=== PATIENT | female | born 1970 | race Caucasian/White ===

== ENCOUNTER 2017-05-11 10:42 | Inpatient (IN) | payer MEDICAID ==
[~2017-05-11] VITALS: Ht 157.5 cm; Wt 96.4 kg
[~2017-05-11 10:42] MED LIST: AMLO10TA2 PO; ENAL-3 PO; FENO134C PO; GLIM2TAB33 PO; INSLANTI SC; NORG0.257 PO
[2017-05-11] MEDS ORDERED: ADENOSINE 6 MG/2 ML INJ IV ONE (10:57)
[2017-05-11] MEDS ORDERED: DILTIAZEM HCL 25 MG/5 ML VIAL IV ONE ×2 (10:58→11:15)
[2017-05-11 11:14] LABS: Basophils # (auto) 0.1 uL; Basophils % (auto) 1.2 % (0.0-2.0); Eosinophils # (auto) 0.1 uL; Eosinophils % (auto) 1.9 % (0.0-7.0); Hematocrit 46.6 % (36.0-46.0); Hemoglobin 15.3 g/dL (12.2-16.2); Lymphocytes # (auto) 2.3 uL; Lymphocytes % (auto) 39.4 % (10.0-50.0); Mean Corpuscular Hemoglobin 30.1 pg (28.0-32.0); Mean Corpuscular Hgb Conc. 32.8 g/dL (32.0-36.0); Mean Corpuscular Volume 91.7 fL (80.0-100.0); Monocytes # (auto) 0.3 uL; Monocytes % (auto) 4.4 % (0.0-12.0); Neutrophils # (auto) 3.1 uL; Neutrophils % (auto) 53.1 % (37.0-80.0); Nucleated Red Blood Cells % 1.5 %; Platelet Count (auto) 199 10^3/uL (140-450); Red Blood Cells 5.08 10^6/uL (4.0-5.20); Red Cell Distribution Width 13.4 % (11.8-14.3); White Blood Cell 5.8 10^3/uL (4.4-10.8)
[2017-05-11 11:31] LABS: Alanine Aminotransferase 84 U/L (13-56); Albumin 3.1 g/dL (3.4-5.0); Alkaline Phosphatase 151 U/L (45-117); Anion Gap 11 (5-15); Aspartate Aminotransferase 78 U/L (15-37); BUN/Creatinine Ratio 21.4; Bilirubin, Total 0.5 mg/dL (0.2-1.0); Blood Urea Nitrogen 21 mg/dL (7-18); Calcium 8.6 mg/dL (8.5-10.1); Carbon Dioxide 17 mmol/L (21-32); Chloride 107 mmol/L (98-107); GFR African American 78 mL/min; GFR Non-African American 65 mL/min; Glucose 312 mg/dL (74-106); Magnesium 1.7 mg/dL (1.6-2.6); Potassium 4.2 mmol/L (3.5-5.1); Sodium 135 mmol/L (136-145); Total Protein 7.7 g/dL (6.4-8.2)
[2017-05-11] MEDS ORDERED: SODIUM CHLORIDE 0.9% 1,000 ML IV ONE (13:30)
[2017-05-11] MEDS ORDERED: NITROGLYCERIN 0.4 MG SL TAB SL PRN (13:45)
[2017-05-11] MEDS ORDERED: PANTOPRAZOLE 40 MG TAB PO ONE (13:45)
[2017-05-11] MEDS ORDERED: ONDANSETRON HCL 4 MG/2 ML VIAL IV PRN (13:45)
[2017-05-11] MEDS ORDERED: DEXTROSE (50%) 50ML SYRG IV PRN (13:45)
[2017-05-11] MEDS ORDERED: METOPROLOL TARTRATE 25 MG TAB PO ONE (13:45)
[2017-05-11] MEDS ORDERED: MORPHINE SULFATE 4 MG/ML SYR/VIAL IV PRN (13:45)
[2017-05-11] MEDS ORDERED: ASPirin 81 mg TAB PO ONE (14:00)
[2017-05-11 17:00] VITALS: BP 167/94
[2017-05-11] MEDS: ACCU-CHEK COMFORT CURVE STRIP VI SCH ×2 (17:00→22:00)
[2017-05-11] MEDS: InsuLIN REG 1unit/0.01ml Soln (100units/ml) SC SCH ×2 (17:00→22:00)
[2017-05-11] MEDS ORDERED: VENL150C PO (17:26)
[2017-05-11] MEDS ORDERED: GLIM4TAB PO (17:26)
[2017-05-11] MEDS ORDERED: OMEP20TA PO (17:26)
[2017-05-11 20:05] VITALS: BP 147/83
[2017-05-11 22:00] VITALS: BP 147/83
[2017-05-11] MEDS: ATORVASTATIN 20 MG TAB PO SCH (22:44)
[2017-05-11] MEDS: METOPROLOL TARTRATE 25 MG TAB PO SCH (22:46)
[2017-05-11] MEDS: HYDROcodone-ACET 5/325MG TAB PO PRN (22:47)
[2017-05-11] MEDS: VENLAFAXINE HCL 37.5mg XR cap PO SCH (22:57)
[2017-05-12] VITALS (7 sets, daily range): BP systolic 128–144; BP diastolic 80–91
[2017-05-12] MEDS: ACCU-CHEK COMFORT CURVE STRIP VI SCH ×4 (07:00→22:00)
[2017-05-12] MEDS: InsuLIN REG 1unit/0.01ml Soln (100units/ml) SC SCH ×4 (07:00→20:58)
[2017-05-12] MEDS: METOPROLOL TARTRATE 25 MG TAB PO SCH ×2 (10:03→20:55)
[2017-05-12] MEDS: ASPirin 81 mg TAB PO SCH (10:04)
[2017-05-12] MEDS: VENLAFAXINE HCL 37.5mg XR cap PO SCH ×2 (10:04→20:54)
[2017-05-12] MEDS: PANTOPRAZOLE 40 MG TAB PO SCH (10:04)
[2017-05-12] MEDS: HYDROcodone-ACET 5/325MG TAB PO PRN ×3 (10:05→23:40)
[2017-05-12] MEDS: ATORVASTATIN 20 MG TAB PO SCH (20:55)
[2017-05-13 06:00] VITALS: BP 152/90
[2017-05-13] MEDS: ACCU-CHEK COMFORT CURVE STRIP VI SCH ×4 (06:38→21:48)
[2017-05-13] MEDS: InsuLIN REG 1unit/0.01ml Soln (100units/ml) SC SCH ×4 (06:40→21:48)
[2017-05-13 08:00] VITALS: BP 146/80
[2017-05-13] MEDS: METOPROLOL TARTRATE 25 MG TAB PO SCH (09:57)
[2017-05-13] MEDS: PANTOPRAZOLE 40 MG TAB PO SCH (09:58)
[2017-05-13] MEDS: ASPirin 81 mg TAB PO SCH (09:58)
[2017-05-13] MEDS: HYDROcodone-ACET 5/325MG TAB PO PRN ×4 (09:58→23:28)
[2017-05-13] MEDS: VENLAFAXINE HCL 37.5mg XR cap PO SCH ×2 (09:58→21:47)
[2017-05-13 12:40] VITALS: BP 141/81
[2017-05-13 16:35] VITALS: BP 145/88
[2017-05-13 21:26] LABS: Urine Bacteria FEW /hpf (None Seen); Urine Blood 2+ /uL (Negative); Urine Mucus FEW (None Seen); Urine Specific Gravity 1.021 (1.001-1.035); Urine WBC 1 /hpf (0 - 5)
[2017-05-13 21:30] VITALS: BP 151/87
[2017-05-13] MEDS: ATORVASTATIN 20 MG TAB PO SCH (21:47)
[2017-05-13 23:15] VITALS: BP 143/88
[2017-05-14 05:00] VITALS: BP 130/84
[2017-05-14] MEDS: InsuLIN REG 1unit/0.01ml Soln (100units/ml) SC SCH ×3 (06:51→17:00)
[2017-05-14] MEDS: ACCU-CHEK COMFORT CURVE STRIP VI SCH ×3 (06:51→19:31)
[2017-05-14] MEDS ORDERED: ADENOSINE 81 MG in GIVE UN-DILUTED 0 ML IV STA (08:22)
[2017-05-14 09:10] VITALS: BP 145/96
[2017-05-14 09:39] VITALS: BP 148/89
[2017-05-14] MEDS ORDERED: VALSARTAN 80 MG TAB PO SCH (10:00)
[2017-05-14] MEDS ORDERED: HCTZ 25 MG TAB PO SCH (10:00)
[2017-05-14] MEDS: ASPirin 81 mg TAB PO SCH (11:27)
[2017-05-14] MEDS: PANTOPRAZOLE 40 MG TAB PO SCH (11:27)
[2017-05-14] MEDS: VENLAFAXINE HCL 37.5mg XR cap PO SCH (11:28)
[2017-05-14 13:00] VITALS: BP 139/87
[2017-05-14 16:03] VITALS: BP 139/87
[2017-05-14 16:45] VITALS: BP 137/83
== END 2017-05-14 21:00 | disposition home or self-care (01) | DRG 198 ==
LOC: ER 10:42 → TELE 10:43 → TELE-WESTW 16:48
PROVIDERS: ADMIT Internal Medicine; ATTEND Internal Medicine
DX: I25.10 Atherosclerotic heart disease of native coronary artery without angina pectoris (principal); I11.9 Hypertensive heart disease without heart failure; I47.1 Supraventricular tachycardia; R74.8 Abnormal levels of other serum enzymes; F41.9 Anxiety disorder, unspecified; B19.20 Unspecified viral hepatitis C without hepatic coma; E11.9 Type 2 diabetes mellitus without complications; E66.9 Obesity, unspecified; E78.5 Hyperlipidemia, unspecified; Z79.899 Other long term (current) drug therapy; Z68.38 Body mass index [BMI] 38.0-38.9, adult
CPT/HCPCS: 36415; 71045; 78452; 80053; 81001; 82962; 83036; 83735; 84443; 84484; 85025; 93005; 93017; 93306; 96361; 96372; 96374; 99291; J0153; J1815

== ENCOUNTER 2017-09-09 15:29 | Inpatient (IN) | payer MEDICAID ==
[~2017-09-09] VITALS: Ht 157.5 cm; Wt 103.1 kg
[~2017-09-09 15:29] MED LIST changes: -ENAL-3 PO; -FENO134C PO; -GLIM2TAB33 PO; +GLIM4TAB PO; -INSLANTI SC; +OMEP20TA PO; +VENL150C PO
[2017-09-09 16:10] LABS: Urine Bacteria FEW /hpf (None Seen); Urine Blood 3+ /uL (Negative); Urine Hyaline Cast FEW /lpf (0 - 2); Urine Mucus FEW (None Seen); Urine Specific Gravity 1.019 (1.001-1.035); Urine WBC 26 /hpf (0 - 5)
[2017-09-09] MEDS ORDERED: SODIUM CHLORIDE 0.9% 1,000 ML IVB ONE (16:28)
[2017-09-09 16:30] LABS: Basophils # (auto) 0 uL; Basophils % (auto) 0.4 % (0.0-2.0); Eosinophils # (auto) 0 uL; Eosinophils % (auto) 0.6 % (0.0-7.0); Hematocrit 34.7 % (36.0-46.0); Hemoglobin 12.3 g/dL (12.2-16.2); Lymphocytes # (auto) 1.3 uL; Lymphocytes % (auto) 17.3 % (10.0-50.0); Mean Corpuscular Hemoglobin 33.4 pg (28.0-32.0); Mean Corpuscular Hgb Conc. 35.4 g/dL (32.0-36.0); Mean Corpuscular Volume 94.2 fL (80.0-100.0); Monocytes # (auto) 0.6 uL; Monocytes % (auto) 7.7 % (0.0-12.0); Neutrophils # (auto) 5.6 uL; Nucleated Red Blood Cells % 0.1 %; Platelet Count (auto) 128 10^3/uL (140-450); Red Blood Cells 3.68 10^6/uL (4.0-5.20); Red Cell Distribution Width 13.8 % (11.8-14.3); White Blood Cell 7.6 10^3/uL (4.4-10.8)
[2017-09-09 16:50] LABS: Albumin 3.1 g/dL (3.4-5.0); BUN/Creatinine Ratio 9.6; Bilirubin, Total 0.8 mg/dL (0.2-1.0); Calcium 8.5 mg/dL (8.5-10.1); Potassium 3.9 mmol/L (3.5-5.1); Total Protein 6.9 g/dL (6.4-8.2)
[2017-09-09] MEDS ORDERED: cefTRIAXone 1GM/10ml IVPUSH 10 ML IV ONE ×2 (18:00→19:15)
[2017-09-09] MEDS ORDERED: ONDANSETRON HCL 4 MG/2 ML VIAL IV ONE (18:00)
[2017-09-09] MEDS ORDERED: MORPHINE SULFATE 4 MG/ML SYR/VIAL IV ONE (18:00)
[2017-09-09] MEDS: SODIUM CHLORIDE 0.9% 1,000 ML IV SCH (19:11)
[2017-09-09] MEDS ORDERED: DEXTROSE (50%) 50ML SYRG IV PRN (19:15)
[2017-09-09] MEDS ORDERED: PROMETHAZINE HCL 25 MG/ML 1ML IV PRN (19:15)
[2017-09-09] MEDS ORDERED: NITROGLYCERIN 0.4 MG SL TAB SL PRN (19:15)
[2017-09-09] MEDS ORDERED: PANTOPRAZOLE 40 MG/10 ML VIAL IV ONE (19:15)
[2017-09-09] MEDS ORDERED: MORPHINE SULFATE 4 MG/ML SYR/VIAL IV PRN (19:15)
[2017-09-09] MEDS ORDERED: METOPROLOL SUCCINATE XL 50 MG TAB PO ONE (19:30)
[2017-09-09] MEDS ORDERED: METOPROLOL TARTRATE 1MG/1ML-5ML VIAL IV PRN (19:30)
[2017-09-09] MEDS: MORPHINE SULFATE 4 MG/ML SYR/VIAL IV PRN ×2 (20:05→23:11)
[2017-09-09 20:45] VITALS: BP 129/78
[2017-09-09] MEDS ORDERED: METO25TA62 PO (23:34)
[2017-09-09] MEDS ORDERED: IBUP800T24 PO (23:35)
[2017-09-09] MEDS: metroNIDAZOLE 500MG/100ML 100 ML IV SCH (23:50)
[2017-09-09] MEDS: ACCU-CHEK COMFORT CURVE STRIP VI SCH (23:51)
[2017-09-09] MEDS: InsuLIN REG 1unit/0.01ml Soln (100units/ml) SC SCH (23:56)
[2017-09-10] MEDS: MORPHINE SULFATE 4 MG/ML SYR/VIAL IV PRN ×5 (00:25→20:11)
[2017-09-10] MEDS: SODIUM CHLORIDE 0.9% 1,000 ML IV SCH ×3 (01:52→17:11)
[2017-09-10 04:32] VITALS: BP 112/69
[2017-09-10] MEDS: ACCU-CHEK COMFORT CURVE STRIP VI SCH ×3 (05:37→17:27)
[2017-09-10] MEDS: metroNIDAZOLE 500MG/100ML 100 ML IV SCH ×3 (05:37→17:27)
[2017-09-10] MEDS: InsuLIN REG 1unit/0.01ml Soln (100units/ml) SC SCH ×3 (05:40→17:27)
[2017-09-10 06:45] LABS: Basophils # (auto) 0 uL; Basophils % (auto) 0.5 % (0.0-2.0); Eosinophils # (auto) 0.1 uL; Eosinophils % (auto) 1.3 % (0.0-7.0); Hematocrit 30.3 % (36.0-46.0); Hemoglobin 10.5 g/dL (12.2-16.2); Lymphocytes # (auto) 1.6 uL; Lymphocytes % (auto) 33.2 % (10.0-50.0); Mean Corpuscular Hemoglobin 33.1 pg (28.0-32.0); Mean Corpuscular Hgb Conc. 34.7 g/dL (32.0-36.0); Mean Corpuscular Volume 95.6 fL (80.0-100.0); Monocytes # (auto) 0.3 uL; Monocytes % (auto) 7.4 % (0.0-12.0); Neutrophils # (auto) 2.7 uL; Neutrophils % (auto) 57.6 % (37.0-80.0); Platelet Count (auto) 93 10^3/uL (140-450); Red Blood Cells 3.17 10^6/uL (4.0-5.20); White Blood Cell 4.7 10^3/uL (4.4-10.8)
[2017-09-10 07:01] LABS: Albumin 2.3 g/dL (3.4-5.0); Calcium 7.1 mg/dL (8.5-10.1); Potassium 3.9 mmol/L (3.5-5.1)
[2017-09-10 07:03] LABS: Bilirubin, Total 0.6 mg/dL (0.2-1.0); Total Protein 5.5 g/dL (6.4-8.2)
[2017-09-10 08:00] VITALS: BP_SYST 129; BP_SYST 156; BP_DIAS 79; BP_DIAS 80
[2017-09-10] MEDS ORDERED: ceFAZolin 1GM/50ML 50 ML IV ONE (08:20)
[2017-09-10 08:32] LABS: INR 0.99 (0.9-1.15); Partial Thromboplastin Time 25.4 sec (23.78-33.04); Prothrombin Time 10.6 sec (9.27-12.13)
[2017-09-10] MEDS: cefTRIAXone 1GM/10ml IVPUSH 10 ML IV SCH (09:00)
[2017-09-10] MEDS: PANTOPRAZOLE 40 MG/10 ML VIAL IV SCH (10:00)
[2017-09-10] MEDS: METOPROLOL SUCCINATE XL 50 MG TAB PO SCH (10:00)
[2017-09-10] MEDS: VENLAFAXINE HCL 37.5mg XR cap PO SCH (10:00)
[2017-09-10] MEDS ORDERED: POVIDONE IODINE 10 % TOPICAL OINT 30GM TOP ONE (10:11)
[2017-09-10] MEDS ORDERED: ROCURONIUM 10MG/ML 10ML VIAL IV ONE (10:12)
[2017-09-10] MEDS ORDERED: MIDAZOLAM HCL 1MG/1ML-2 ML VIAL ONE (10:12)
[2017-09-10] MEDS ORDERED: fentaNYL CITRATE 100 MCG/2 ML VL ONE ×2 (10:12→11:32)
[2017-09-10] MEDS ORDERED: PROPOFOL 10 MG/ML 20 ML IV ONE (10:12)
[2017-09-10] MEDS ORDERED: hydrALAZINE HCL 20 MG/ML VL IV PRN (11:45)
[2017-09-10] MEDS ORDERED: ONDANSETRON HCL 4 MG/2 ML VIAL IV ONE (11:45)
[2017-09-10] MEDS ORDERED: ePHEDrine SULFATE 50 MG/ML AMP IV PRN (11:45)
[2017-09-10] MEDS ORDERED: HYDROmorphone HCL 2 MG/ML VL ONE (12:25)
[2017-09-10] MEDS: HYDROmorphone HCL 2 MG/ML VL IV PRN ×4 (12:26→12:58)
[2017-09-10 13:30] VITALS: BP 119/74
[2017-09-10 16:30] VITALS: BP 142/82
[2017-09-10 21:25] VITALS: BP 140/83
[2017-09-11] MEDS: LORazepam 2MG/ML-1ML VIAL IV PRN ×2 (00:07→09:36)
[2017-09-11] MEDS: MORPHINE SULF INJ 2 MG/ML SYRINGE 1ML IV PRN ×2 (00:07→06:58)
[2017-09-11] MEDS: SODIUM CHLORIDE 0.9% 1,000 ML IV SCH ×4 (00:23→18:05)
[2017-09-11] MEDS: metroNIDAZOLE 500MG/100ML 100 ML IV SCH ×5 (00:23→23:16)
[2017-09-11] MEDS: ACCU-CHEK COMFORT CURVE STRIP VI SCH ×5 (00:24→23:18)
[2017-09-11 05:19] VITALS: BP 154/84
[2017-09-11 05:54] LABS: Basophils # (auto) 0 uL; Basophils % (auto) 0.5 % (0.0-2.0); Eosinophils # (auto) 0 uL; Eosinophils % (auto) 0.4 % (0.0-7.0); Hemoglobin 10.6 g/dL (12.2-16.2); Lymphocytes # (auto) 1.3 uL; Lymphocytes % (auto) 20.9 % (10.0-50.0); Mean Corpuscular Hgb Conc. 35.3 g/dL (32.0-36.0); Mean Corpuscular Volume 96.1 fL (80.0-100.0); Monocytes # (auto) 0.5 uL; Monocytes % (auto) 8.3 % (0.0-12.0); Neutrophils # (auto) 4.4 uL; Neutrophils % (auto) 69.9 % (37.0-80.0); Nucleated Red Blood Cells % 0.1 %; Platelet Count (auto) 109 10^3/uL (140-450); Red Blood Cells 3.12 10^6/uL (4.0-5.20); Red Cell Distribution Width 13.6 % (11.8-14.3); White Blood Cell 6.3 10^3/uL (4.4-10.8)
[2017-09-11] MEDS: InsuLIN REG 1unit/0.01ml Soln (100units/ml) SC SCH ×5 (06:00→23:17)
[2017-09-11 06:19] LABS: Albumin 2.3 g/dL (3.4-5.0); BUN/Creatinine Ratio 8.5; Bilirubin, Total 1.2 mg/dL (0.2-1.0); Calcium 6.5 mg/dL (8.5-10.1); Potassium 3.5 mmol/L (3.5-5.1); Total Protein 5.7 g/dL (6.4-8.2)
[2017-09-11 08:00] VITALS: BP 156/80
[2017-09-11 09:00] VITALS: BP 157/79
[2017-09-11] MEDS: PANTOPRAZOLE 40 MG/10 ML VIAL IV SCH (09:35)
[2017-09-11] MEDS: cefTRIAXone 1GM/10ml IVPUSH 10 ML IV SCH (09:35)
[2017-09-11] MEDS: METOPROLOL SUCCINATE XL 50 MG TAB PO SCH (09:36)
[2017-09-11] MEDS: VENLAFAXINE HCL 37.5mg XR cap PO SCH (09:36)
[2017-09-11] MEDS: KETOROLAC TROMETH 30 MG/ML 1ML VIAL IV PRN ×2 (12:10→18:06)
[2017-09-11 13:00] VITALS: BP 154/89
[2017-09-11 16:58] VITALS: BP 141/81
[2017-09-11 22:00] VITALS: BP 142/75
[2017-09-12] MEDS: SODIUM CHLORIDE 0.9% 1,000 ML IV SCH ×4 (00:28→20:31)
[2017-09-12] MEDS: KETOROLAC TROMETH 30 MG/ML 1ML VIAL IV PRN ×4 (00:29→20:51)
[2017-09-12 04:38] LABS: Basophils # (auto) 0 uL; Eosinophils # (auto) 0.1 uL; Hemoglobin 9.9 g/dL (12.2-16.2); Mean Corpuscular Volume 94.4 fL (80.0-100.0); Neutrophils # (auto) 3.3 uL; Platelet Count (auto) 114 10^3/uL (140-450)
[2017-09-12 04:42] LABS: Basophils % (auto) 0.4 % (0.0-2.0); Eosinophils % (auto) 2.3 % (0.0-7.0); Hematocrit 27.2 % (36.0-46.0); Lymphocytes # (auto) 1.3 uL; Lymphocytes % (auto) 25.5 % (10.0-50.0); Mean Corpuscular Hemoglobin 34.3 pg (28.0-32.0); Mean Corpuscular Hgb Conc. 36.3 g/dL (32.0-36.0); Monocytes # (auto) 0.3 uL; Monocytes % (auto) 6.7 % (0.0-12.0); Neutrophils % (auto) 65.1 % (37.0-80.0); Red Blood Cells 2.88 10^6/uL (4.0-5.20); Red Cell Distribution Width 13.4 % (11.8-14.3); White Blood Cell 5.1 10^3/uL (4.4-10.8)
[2017-09-12 05:05] LABS: Anion Gap 10 (5-15); BUN/Creatinine Ratio 11.1; Blood Urea Nitrogen 7 mg/dL (7-18); Calcium 6.7 mg/dL (8.5-10.1); Carbon Dioxide 20 mmol/L (21-32); Chloride 112 mmol/L (98-107); GFR African American 130 mL/min; GFR Non-African American 108 mL/min; Glucose 129 mg/dL (74-106); Potassium 3.7 mmol/L (3.5-5.1); Sodium 142 mmol/L (136-145)
[2017-09-12 05:08] LABS: Alanine Aminotransferase 34 U/L (13-56); Alkaline Phosphatase 59 U/L (45-117); Aspartate Aminotransferase 34 U/L (15-37); Bilirubin, Total 0.8 mg/dL (0.2-1.0); Total Protein 5.3 g/dL (6.4-8.2)
[2017-09-12 05:24] VITALS: BP 153/89
[2017-09-12] MEDS: metroNIDAZOLE 500MG/100ML 100 ML IV SCH ×3 (06:47→17:21)
[2017-09-12] MEDS: ACCU-CHEK COMFORT CURVE STRIP VI SCH ×3 (06:47→17:21)
[2017-09-12] MEDS: InsuLIN REG 1unit/0.01ml Soln (100units/ml) SC SCH ×3 (07:00→17:21)
[2017-09-12 07:43] VITALS: BP 157/79
[2017-09-12 08:00] VITALS: BP 156/93
[2017-09-12] MEDS: cefTRIAXone 1GM/10ml IVPUSH 10 ML IV SCH (09:45)
[2017-09-12] MEDS: VENLAFAXINE HCL 37.5mg XR cap PO SCH (09:45)
[2017-09-12] MEDS: PANTOPRAZOLE 40 MG/10 ML VIAL IV SCH (09:45)
[2017-09-12] MEDS: METOPROLOL SUCCINATE XL 50 MG TAB PO SCH (09:46)
[2017-09-12 12:24] VITALS: BP 149/83
[2017-09-12 16:48] VITALS: BP 161/95
[2017-09-12 22:00] VITALS: BP 179/96
[2017-09-13] MEDS: SODIUM CHLORIDE 0.9% 1,000 ML IV SCH ×2 (02:39→10:25)
[2017-09-13 05:00] VITALS: BP 180/94
[2017-09-13] MEDS: metroNIDAZOLE 500MG/100ML 100 ML IV SCH ×2 (05:51)
[2017-09-13] MEDS: ACCU-CHEK COMFORT CURVE STRIP VI SCH ×2 (05:51)
[2017-09-13] MEDS: KETOROLAC TROMETH 30 MG/ML 1ML VIAL IV PRN (05:52)
[2017-09-13 05:53] LABS: Basophils # (auto) 0 uL; Basophils % (auto) 0.9 % (0.0-2.0); Eosinophils # (auto) 0.2 uL; Eosinophils % (auto) 4.1 % (0.0-7.0); Hematocrit 28.3 % (36.0-46.0); Hemoglobin 10.2 g/dL (12.2-16.2); Lymphocytes # (auto) 1.2 uL; Lymphocytes % (auto) 29.9 % (10.0-50.0); Mean Corpuscular Hemoglobin 33.9 pg (28.0-32.0); Mean Corpuscular Volume 94.1 fL (80.0-100.0); Monocytes # (auto) 0.3 uL; Monocytes % (auto) 7.5 % (0.0-12.0); Neutrophils # (auto) 2.3 uL; Neutrophils % (auto) 57.6 % (37.0-80.0); Nucleated Red Blood Cells % 0.1 %; Platelet Count (auto) 130 10^3/uL (140-450); Red Blood Cells 3.01 10^6/uL (4.0-5.20); Red Cell Distribution Width 13.2 % (11.8-14.3)
[2017-09-13] MEDS: InsuLIN REG 1unit/0.01ml Soln (100units/ml) SC SCH ×2 (06:00)
[2017-09-13 06:06] LABS: Albumin 2.1 g/dL (3.4-5.0); BUN/Creatinine Ratio 10.8; Bilirubin, Total 0.6 mg/dL (0.2-1.0); Potassium 3.5 mmol/L (3.5-5.1); Total Protein 5.6 g/dL (6.4-8.2)
[2017-09-13 09:00] VITALS: BP 177/96
[2017-09-13] MEDS: cefTRIAXone 1GM/10ml IVPUSH 10 ML IV SCH (10:21)
[2017-09-13] MEDS: PANTOPRAZOLE 40 MG/10 ML VIAL IV SCH (10:21)
[2017-09-13] MEDS: METOPROLOL SUCCINATE XL 50 MG TAB PO SCH (10:22)
[2017-09-13] MEDS: VENLAFAXINE HCL 37.5mg XR cap PO SCH (10:25)
[2017-09-13 11:07] VITALS: BP 177/96
== END 2017-09-13 13:00 | disposition home or self-care (01) | DRG 223 ==
LOC: ER 15:29 → TELE 15:30 → TELE-WESTW 20:37 → WEST WING 09-12 05:25
PROVIDERS: ADMIT Internal Medicine; ATTEND Internal Medicine
PROC: 0DJD4ZZ Inspection of Lower Intestinal Tract, Percutaneous Endoscopic Approach (ICD-10-PCS; 2017-09-10)
PROC: 0DTJ0ZZ Resection of Appendix, Open Approach (ICD-10-PCS; principal; 2017-09-10 10:10)
DX: K35.80 Unspecified acute appendicitis (principal); N17.0 Acute kidney failure with tubular necrosis; K85.90 Acute pancreatitis without necrosis or infection, unspecified; E44.0 Moderate protein-calorie malnutrition; R65.10 Systemic inflammatory response syndrome (SIRS) of non-infectious origin without acute organ dysfunction; E11.65 Type 2 diabetes mellitus with hyperglycemia; I47.1 Supraventricular tachycardia; Z68.41 Body mass index [BMI] 40.0-44.9, adult; N17.9 Acute kidney failure, unspecified; E66.01 Morbid (severe) obesity due to excess calories; N39.0 Urinary tract infection, site not specified; K21.9 Gastro-esophageal reflux disease without esophagitis; F32.9 Major depressive disorder, single episode, unspecified; I10 Essential (primary) hypertension; F41.9 Anxiety disorder, unspecified; E86.0 Dehydration; E78.5 Hyperlipidemia, unspecified; Z82.49 Family history of ischemic heart disease and other diseases of the circulatory system; Z82.0 Family history of epilepsy and other diseases of the nervous system; Z53.31 Laparoscopic surgical procedure converted to open procedure
CPT/HCPCS: 36415; 71045; 74176; 76705; 80053; 81001; 81025; 82150; 82962; 83036; 83690; 83735; 85025; 85610; 85730; 86850; 86900; 86901; 87086; 94761; 96361; 96365; 96375; A6257; C9113; J0690; J0696; J1885; J2250; J2405; J2704; J3490

== ENCOUNTER 2018-04-26 08:23 | Emergency (ER) | payer MEDICAID ==
[~2018-04-26] VITALS: Ht 154.9 cm; Wt 90.7 kg
[~2018-04-26 08:23] MED LIST changes: -AMLO10TA2 PO; +IBUP800T24 PO; +METO25TA62 PO; -VENL150C PO; +VENL150C2 PO
[2018-04-26 09:20] VITALS: BP 153/103
== END 2018-04-26 10:02 | disposition home or self-care (01) ==
LOC: ER 08:23
DX: J20.9 Acute bronchitis, unspecified (principal); E11.9 Type 2 diabetes mellitus without complications; E78.5 Hyperlipidemia, unspecified; I10 Essential (primary) hypertension
CPT/HCPCS: 71046

== ENCOUNTER 2018-08-30 11:43 | Inpatient (IN) | payer MEDICAID ==
[~2018-08-30] VITALS: Ht 154.9 cm; Wt 89.7 kg
[2018-08-30 12:14] LABS: Hematocrit 40.4 % (36.0-46.0); Hemoglobin 14.1 g/dL (12.2-16.2); Mean Corpuscular Hemoglobin 32.4 pg (28.0-32.0); Mean Corpuscular Hgb Conc. 34.9 g/dL (32.0-36.0); Platelet Count (auto) 188 10^3/uL (140-450); Red Blood Cells 4.35 10^6/uL (4.0-5.20); Red Cell Distribution Width 14.3 % (11.8-14.3); White Blood Cell 4.4 10^3/uL (4.4-10.8)
[2018-08-30 12:26] LABS: INR 0.98 (0.9-1.15); Partial Thromboplastin Time 26.9 sec (23.64-32.05)
[2018-08-30 12:28] LABS: Alanine Aminotransferase 48 U/L (13-56); Albumin 3.5 g/dL (3.4-5.0); Anion Gap 10 (5-15); Aspartate Aminotransferase 45 U/L (15-37); Blood Urea Nitrogen 14 mg/dL (7-18); Calcium 8.2 mg/dL (8.5-10.1); Carbon Dioxide 19 mmol/L (21-32); Chloride 111 mmol/L (98-107); Glucose 197 mg/dL (74-106); Potassium 4.2 mmol/L (3.5-5.1); Sodium 140 mmol/L (136-145)
[2018-08-30] MEDS ORDERED: SODIUM CHLORIDE 0.9% 1,000 ML IV ONE (12:30)
[2018-08-30 12:32] LABS: Basophils % (manual) 0 (0.0-2.0); Blast Cells 0; Eosinophils % (manual) 0 (0-7); Metamyelocytes % 0; Myelocytes % 0; Promyelocytes % 0; Reactive Lymphocytes 0
[2018-08-30 12:33] LABS: Alkaline Phosphatase 92 U/L (45-117); BUN/Creatinine Ratio 10.9; Bilirubin, Total 0.9 mg/dL (0.2-1.0); GFR African American 57 mL/min; GFR Non-African American 47 mL/min; Total Protein 7.8 g/dL (6.4-8.2)
[2018-08-30] MEDS ORDERED: SODIUM CHLORIDE 0.9% 1,000 ML IVB ONE (12:37)
[2018-08-30] MEDS ORDERED: ONDANSETRON HCL 4 MG/2 ML VIAL IV ONE (12:45)
[2018-08-30] MEDS ORDERED: ASPirin 81 mg TAB PO ONE (12:45)
[2018-08-30] MEDS ORDERED: AMIODARONE HCL 900 MG in DEXTROSE 500 ML IV SCH ×2 (14:12→20:12)
[2018-08-30] MEDS ORDERED: NITROGLYCERIN 0.4 MG SL TAB SL PRN (14:15)
[2018-08-30] MEDS ORDERED: AMIODARONE HCL 150 MG in D5W 5% 100 ML IV ONE (14:15)
[2018-08-30] MEDS ORDERED: MORPHINE SULF INJ 2 MG/ML SYRINGE 1ML IV PRN ×2 (14:15)
[2018-08-30] MEDS ORDERED: HYDROcodone-ACET 5/325MG TAB PO PRN (14:15)
[2018-08-30] MEDS: MAGNESIUM SULFATE 1GM/100ML 100 ML IV SCH ×2 (14:37→15:46)
[2018-08-30] MEDS ORDERED: MAGNESIUM SULFATE 1GM/100ML 100 ML IV ONE (15:15)
[2018-08-30] MEDS: AMIODARONE HCL 200 MG TAB PO SCH (17:04)
--- NOTE | 2018-08-30 18:10 | NUR ---
Telemetry admit from ER YASMANYGILLIAN admitted to Telemetry unit after SBAR received. Patient oriented to primary RN, unit, room, bed, and unit policies regarding patient care and visiting hours. Patient now on continuous telemetry monitoring, tele box # 5 and telemetry reading on arrival to unit is SR in the 60's. Patient weighed by bed scale and encouraged to call if they need something. All questions and concerns addressed, patient verbalized understanding. Bed in lowest, locked position with side rails up x2 and call light within reach. Will continue to monitor patient Q1hr and PRN.
[2018-08-30] MEDS ORDERED: LOSA-69 PO (18:57)
[2018-08-30] MEDS ORDERED: METO-6 PO (18:57)
[2018-08-30] MEDS ORDERED: HCTZ25T GT (18:57)
[2018-08-30] MEDS ORDERED: AMLO5TAB15 PO (18:57)
[2018-08-30] MEDS ORDERED: METF500T PO (18:57)
[2018-08-30 19:40] LABS: Band Neutrophils % (manual) 0; Lymphocytes % (manual) 58 (10.0-50.0); Monocytes % (manual) 10 (0-12)
--- NOTE | 2018-08-30 20:30 | NUR ---
open note assumed care of pt. upon entering room pt awake, alert and oriented x4. pt bed locked, low and 2x rails up. pt on room air no distress noted or expressed. pt denied any pain. pt updated on plan of care. pt encouraged to call as needed, call light in reach. will round on pt q1hr and prn.
[2018-08-30 22:00] VITALS: BP 131/78
[2018-08-30] MEDS: DOCUSATE SOD 100 MG CAP PO SCH (22:33)
[2018-08-30] MEDS: ACETAMINOPHEN 500 MG TAB PO PRN (22:34)
--- NOTE | 2018-08-30 22:52 | NUR ---
paged hospitalist to notify of troponin 2nd draw. result 2.30 up from 1400 draw of 0.045. SENIOR PRODUCT DEVELOPMENT SCIENTIST Ashby aware. no new orders. will continue to monitor. pt awake, alert and no complaints at this time.
[2018-08-31] MEDS: AMIODARONE HCL 200 MG TAB PO SCH ×2 (04:51→21:53)
[2018-08-31 05:00] VITALS: BP 143/85
[2018-08-31 06:18] LABS: Basophils # (auto) 0 uL; Basophils % (auto) 0.8 % (0.0-2.0); Eosinophils # (auto) 0.1 uL; Hematocrit 32.3 % (36.0-46.0); Hemoglobin 11.2 g/dL (12.2-16.2); Lymphocytes % (auto) 55.9 % (10.0-50.0); Mean Corpuscular Hemoglobin 32.6 pg (28.0-32.0); Mean Corpuscular Hgb Conc. 34.8 g/dL (32.0-36.0); Mean Corpuscular Volume 93.6 fL (80.0-100.0); Monocytes # (auto) 0.4 uL; Monocytes % (auto) 10.1 % (0.0-12.0); Neutrophils # (auto) 1.1 uL; Neutrophils % (auto) 30.2 % (37.0-80.0); Nucleated Red Blood Cells % 0.1 %; Platelet Count (auto) 114 10^3/uL (140-450); Red Blood Cells 3.45 10^6/uL (4.0-5.20); Red Cell Distribution Width 14.1 % (11.8-14.3); White Blood Cell 3.6 10^3/uL (4.4-10.8)
[2018-08-31 06:25] LABS: Potassium 4.1 mmol/L (3.5-5.1)
[2018-08-31 06:33] LABS: BUN/Creatinine Ratio 12.8; Calcium 7.2 mg/dL (8.5-10.1)
[2018-08-31 06:35] LABS: INR 1.02 (0.9-1.15); Partial Thromboplastin Time 30.3 sec (23.64-32.05)
--- NOTE | 2018-08-31 07:30 | NUR ---
Opening Shift Note RECEIVED REPORT FROM NOC RN. Assumed care of patient, awake and alert. No S/S of distress/SOB or pain. BED IN LOWEST, LOCKED POSITION WITH SIDERAILS UP x2. Instructed on POC and to call for assist PRN, will continue to monitor for changes Q1hr and PRN.
[2018-08-31 08:05] VITALS: BP 123/74
[2018-08-31] MEDS ORDERED: ADENOSINE 75 MG in GIVE UN-DILUTED 0 ML IV STA (08:59)
[2018-08-31 09:00] VITALS: BP 123/74
--- NOTE | 2018-08-31 09:15 | NUR ---
CRITICAL LAB TROPONIN 1.640. EVA TANG NP, NOTIFIED OF RESULTS.
[2018-08-31] MEDS: ASPirin-EC 81 mg tab PO SCH (09:49)
[2018-08-31] MEDS: DOCUSATE SOD 100 MG CAP PO SCH ×2 (09:50→21:53)
[2018-08-31] MEDS: METOPROLOL SUCCINATE XL 50 MG TAB PO SCH (09:50)
[2018-08-31] MEDS: FAMOTIDINE 20 MG TAB PO SCH (09:50)
--- NOTE | 2018-08-31 10:17 | NUR ---
RADIOLOGY AT BEDSIDE. PATIENT GOING DOWN FOR ANGIOGRAM.
[2018-08-31] MEDS ORDERED: LIDOCAINE 2%HCL (LOCAL ANESTH.) INJ 20ML MDV ONE (10:24)
[2018-08-31] MEDS ORDERED: IODIXANOL 320MG/ML 100ML BTL IV ONE ×2 (10:24→10:35)
--- NOTE | 2018-08-31 10:28 | NUR ---
Stress Test Update Cancelled per Dr. Granados's V.O. Pt taken down to quality lab assoc via bed for [facility] procedure. Primary RN notified.
[2018-08-31] MEDS ORDERED: fentaNYL CITRATE 100 MCG/2 ML VL ONE (10:34)
[2018-08-31] MEDS ORDERED: ANGIOMAX 250 MG VIAL IV ONE (10:34)
[2018-08-31] MEDS ORDERED: SODIUM CHL 0.9% 0 ML ONE (10:34)
[2018-08-31] MEDS ORDERED: MIDAZOLAM HCL 1MG/1ML-2 ML VIAL ONE (10:34)
[2018-08-31] MEDS ORDERED: VERAPAMIL 2.5MG/ML INJ 2ML VIAL IV ONE (10:35)
[2018-08-31] MEDS ORDERED: HEPARIN SODIUM (PORCINE) 5000 UNITS/ML 1ML VIAL ONE (11:30)
[2018-08-31 13:00] VITALS: BP 149/89
[2018-08-31] MEDS: ONDANSETRON HCL 4 MG/2 ML VIAL IV PRN (18:00)
[2018-08-31] MEDS: LABETALOL HCL 5 MG/ML ML 20ML VIAL IV PRN ×2 (18:41→21:11)
--- NOTE | 2018-08-31 19:45 | NUR ---
open note assumed care of pt. upon entering room pt awake, alert and oriented x4. pt on room air no distress noted or expressed. pt has dressing, tegaderm to left medial aspect of wrist, clean dry intact. pt denies any pain at this time. pt updated on plan of care. call light in reach, will round on pt q1hr and prn.
[2018-08-31 23:14] VITALS: BP 137/76
[2018-09-01] VITALS (7 sets, daily range): BP systolic 148–159; BP diastolic 66–97
[2018-09-01 06:54] LABS: Albumin 2.9 g/dL (3.4-5.0); BUN/Creatinine Ratio 11.3; Calcium 7.8 mg/dL (8.5-10.1); Magnesium 1.8 mg/dL (1.6-2.6); Potassium 3.9 mmol/L (3.5-5.1)
[2018-09-01 06:57] LABS: Bilirubin, Total 0.5 mg/dL (0.2-1.0); Total Protein 6.3 g/dL (6.4-8.2)
[2018-09-01] MEDS: LABETALOL HCL 5 MG/ML ML 20ML VIAL IV PRN ×3 (09:24→21:10)
[2018-09-01] MEDS: FAMOTIDINE 20 MG TAB PO SCH (09:36)
[2018-09-01] MEDS: AMIODARONE HCL 200 MG TAB PO SCH ×2 (09:36→22:07)
[2018-09-01] MEDS: DOCUSATE SOD 100 MG CAP PO SCH ×2 (09:36→22:07)
[2018-09-01] MEDS: ASPirin-EC 81 mg tab PO SCH (09:36)
[2018-09-01] MEDS: METOPROLOL SUCCINATE XL 50 MG TAB PO SCH (09:37)
[2018-09-01] MEDS: ONDANSETRON HCL 4 MG/2 ML VIAL IV PRN (18:24)
--- NOTE | 2018-09-01 19:40 | NUR ---
Opening Shift Note Assumed care of patient, alert and oriented x 4. No S/S of distress/SOB or pain. Patient is ambulatory and on room air. Bed in lowest locked position, side rails up x 2, call light within reach. Instructed on POC and to call for assist PRN, will continue to monitor for changes Q1hr and PRN.
--- NOTE | 2018-09-01 21:10 | NUR ---
Blood Pressure 159/90 Retook patients blood pressure reading 162/91. Administered PRN Labetalol 10mg IV Q2H. Will reassess and continue to monitor and continue care.
[2018-09-02 04:30] VITALS: BP 151/84
--- NOTE | 2018-09-02 05:25 | NUR ---
Blood pressure 151/84 Retook patients blood pressure reading 148/85. No acute S/S of distress noted. Will continue to monitor and continue care.
--- NOTE | 2018-09-02 06:59 | NUR ---
Closing Shift Note Patient asleep in bed. Even and unlabored breaths. Bed in lowest locked position, side rails up x 2, call light within reach. Will endorse care to dayshift SHELBIE Otero.
[2018-09-02 08:00] VITALS: BP 153/75
[2018-09-02 08:05] VITALS: BP 153/75
[2018-09-02] MEDS: PANTOPRAZOLE 40 MG TAB PO SCH (09:55)
[2018-09-02] MEDS: AMIODARONE HCL 200 MG TAB PO SCH ×2 (09:56→21:32)
[2018-09-02] MEDS: METOPROLOL SUCCINATE XL 50 MG TAB PO SCH (09:56)
[2018-09-02] MEDS: ASPirin-EC 81 mg tab PO SCH (09:56)
[2018-09-02] MEDS: DOCUSATE SOD 100 MG CAP PO SCH ×2 (09:56→21:32)
[2018-09-02 11:52] VITALS: BP 164/91
--- NOTE | 2018-09-02 11:53 | NUR ---
Nutrition Assessment Notes please see attached link for complete assessment Est. Needs ABW [id number] kcal (20-23kcal/kgBW), 68-74 gms pro (1.0-1.1gms/kgBW). Will continue to monitor pertinent labs and reassess nutrient need prn Addendum: 09/02/18 at [address] Amended: Links added.
[2018-09-02] MEDS: ONDANSETRON HCL 4 MG/2 ML VIAL IV PRN ×2 (12:13→21:18)
--- NOTE | 2018-09-02 16:48 | NUR ---
assessment No needs identified. Addendum: 09/02/18 at 1649 by Larisa HERNANDEZ Amended: Links added.
[2018-09-02 17:26] VITALS: BP 168/93
[2018-09-02] MEDS: LABETALOL HCL 5 MG/ML ML 20ML VIAL IV PRN (17:43)
--- NOTE | 2018-09-02 19:00 | NUR ---
Opening Shift Note Assumed care of patient, awake and alert. No S/S of distress/SOB or pain. Instructed on POC and to call for assist PRN, will continue to monitor for changes Q1hr and PRN.
[2018-09-02 22:00] VITALS: BP 176/87
[2018-09-03 05:00] VITALS: BP 154/96
[2018-09-03 08:00] VITALS: BP 159/93
[2018-09-03] MEDS ORDERED: LISINOPRIL 5 MG TAB PO ONE (09:15)
[2018-09-03] MEDS: ASPirin-EC 81 mg tab PO SCH (10:02)
[2018-09-03] MEDS: PANTOPRAZOLE 40 MG TAB PO SCH (10:02)
[2018-09-03] MEDS: DOCUSATE SOD 100 MG CAP PO SCH ×2 (10:03→21:38)
[2018-09-03] MEDS: LISINOPRIL 5 MG TAB PO SCH (10:03)
[2018-09-03] MEDS: AMIODARONE HCL 200 MG TAB PO SCH ×2 (10:03→21:39)
[2018-09-03 13:00] VITALS: BP 148/84
[2018-09-03 17:28] VITALS: BP 130/74
--- NOTE | 2018-09-03 19:23 | NUR ---
Change of shift given to night filler RN. No distress noted.
--- NOTE | 2018-09-03 20:00 | NUR ---
PATIENT IS A0X4 AND RESTING BED. SHE HAS NO COMPLAINTS OF PAIN OR DISCOMFORT AT THE MOMENT. SHE IS CURRENTLY REFUSING TO HAVE THE IV FLUIDS. SHE IS AWARE OF HER PLAN OF CARE. BED IS LOCKED IN LOWEST POSITION WITH SIDE RAILS UP X2. CALL LIGHT IS WITHIN REACH. WILL CONTINUE TO MONITOR.
[2018-09-03] MEDS: ACETAMINOPHEN 500 MG TAB PO PRN (21:38)
[2018-09-03 22:00] VITALS: BP 166/105
[2018-09-03 23:01] VITALS: BP 157/73
[2018-09-04 05:05] VITALS: BP 138/83
--- NOTE | 2018-09-04 07:30 | NUR ---
Open Shift Note Received report on patient, awake and sitting up in bed. Patient shows no signs of distress at this time. Discussed POC with patient and plans for procedure tomorrow. Bed in lowest locked position, side rails up x2 and call light within reach. Will continue to monitor.
[2018-09-04 09:20] VITALS: BP 155/82
[2018-09-04] MEDS: DOCUSATE SOD 100 MG CAP PO SCH ×2 (10:00→22:23)
[2018-09-04] MEDS: SODIUM CHLORIDE 0.9% 1,000 ML IV SCH ×2 (10:05→20:12)
[2018-09-04] MEDS: ASPirin-EC 81 mg tab PO SCH (10:05)
[2018-09-04] MEDS: PANTOPRAZOLE 40 MG TAB PO SCH (10:06)
[2018-09-04] MEDS: LISINOPRIL 5 MG TAB PO SCH (10:06)
[2018-09-04] MEDS: AMIODARONE HCL 200 MG TAB PO SCH ×2 (10:07→22:23)
[2018-09-04 13:11] VITALS: BP 158/97
[2018-09-04] MEDS: LABETALOL HCL 5 MG/ML ML 20ML VIAL IV PRN (14:37)
[2018-09-04] MEDS: ACETAMINOPHEN 500 MG TAB PO PRN ×2 (14:38→22:43)
[2018-09-04 17:15] VITALS: BP 148/81
--- NOTE | 2018-09-04 19:06 | NUR ---
Closing Note Endorsed care to NOC nurse, patient sitting up in bed, shows no signs of distress at this time. Bed in lowest locked position, side rails up x2 and call light within reach.
[2018-09-04 22:04] VITALS: BP 162/75
[2018-09-04 22:49] VITALS: BP 166/87
[2018-09-04] MEDS ORDERED: cloNIDine HCL 0.1 MG TAB PO ONE (23:00)
[2018-09-05 04:00] VITALS: BP 160/85
--- NOTE | 2018-09-05 06:25 | NUR ---
PER SINA HE ORDERED TO GIVE MORNING MEDS EARLY FOR HIGH BLOOD PRESSURE.
[2018-09-05 06:31] LABS: BUN/Creatinine Ratio 16.8; Calcium 8.2 mg/dL (8.5-10.1); Magnesium 1.5 mg/dL (1.6-2.6)
[2018-09-05] MEDS: LISINOPRIL 5 MG TAB PO SCH (06:46)
--- NOTE | 2018-09-05 07:55 | NUR ---
[employer]inder[employer] Manager Will Call For Time To Bring Down Called labor contract analyst and asked will patient will be taken down for EP study, nurse stated they will call back because Dr Mcmillan is on his first EP study now. Awaiting callback.
[2018-09-05 09:11] VITALS: BP 157/81
--- NOTE | 2018-09-05 09:35 | NUR ---
Patient off unit Patient taken to laboratory animal facility supervisor at 0935 for EP and possible ablation.
[2018-09-05] MEDS ORDERED: LIDOCAINE 2%HCL (LOCAL ANESTH.) INJ 20ML MDV ONE (09:51)
[2018-09-05] MEDS ORDERED: MIDAZOLAM HCL 1MG/1ML-2 ML VIAL ONE (09:52)
[2018-09-05] MEDS ORDERED: fentaNYL CITRATE 100 MCG/2 ML VL ONE (09:52)
[2018-09-05] MEDS: DOCUSATE SOD 100 MG CAP PO SCH ×2 (10:00→22:04)
[2018-09-05] MEDS: AMIODARONE HCL 200 MG TAB PO SCH ×3 (10:00→22:04)
[2018-09-05] MEDS: PANTOPRAZOLE 40 MG TAB PO SCH (10:00)
[2018-09-05] MEDS: ASPirin-EC 81 mg tab PO SCH (10:00)
[2018-09-05] MEDS ORDERED: ISOPROTERENOL HCL INJECTION 1 MG in D5W 5% 250 ML IV SCH (11:09)
[2018-09-05] MEDS: MAGNESIUM SULFATE 1GM/100ML 100 ML IV SCH ×2 (13:30→16:12)
--- NOTE | 2018-09-05 14:37 | NUR ---
Paged Dr Asencio Paged Dr Asencio to inform him that Dr Mcmillan would like patient to take "50 Metoprolol BID" instead of daily at home as well as to ask him if home diabetic medications can be resumed. Also paged to ask if patient can have PRN medications for her blood pressure other than Labetalol. Awaiting call back.
[2018-09-05] MEDS ORDERED: MAGNESIUM SULFATE 1GM/100ML 100 ML IV ONE (16:10)
--- NOTE | 2018-09-05 16:15 | NUR ---
Endorsed Care Endorsed care to [facility] nurse Enrique. Patient sitting up in bed, shows no signs of distress at this time. Dressing dry and intact. Bed in lowest locked position, side rails up x2 and call light within reach.
--- NOTE | 2018-09-05 16:15 | NUR ---
Care transferred to SHELBIE Nunez. Assumed care of patient, awake and alert. No S/S of distress/SOB or pain. Instructed on POC and to call for assist PRN, will continue to monitor for changes Q1hr and PRN.
--- NOTE | 2018-09-05 17:00 | NUR ---
Dr. Asencio returned page from earlier. MD updated on patient status and condition. New orders were received.
[2018-09-05 17:16] VITALS: BP 150/95
[2018-09-05] MEDS: metFORMIN HYDROCHLORIDE 500 MG TAB PO SCH (18:29)
[2018-09-05] MEDS: ACETAMINOPHEN 500 MG TAB PO PRN (18:30)
[2018-09-05 22:00] VITALS: BP 163/95
[2018-09-05] MEDS: METOPROLOL TARTRATE 50 MG TAB PO SCH (22:04)
[2018-09-05] MEDS: LABETALOL HCL 5 MG/ML ML 20ML VIAL IV PRN (22:05)
[2018-09-06] MEDS: SODIUM CHLORIDE 0.9% 1,000 ML IV SCH ×2 (01:00→11:00)
[2018-09-06 05:10] VITALS: BP 132/76
[2018-09-06] MEDS: metFORMIN HYDROCHLORIDE 500 MG TAB PO SCH (06:30)
[2018-09-06 06:55] LABS: BUN/Creatinine Ratio 16.2; Calcium 8.4 mg/dL (8.5-10.1); Magnesium 1.9 mg/dL (1.6-2.6); Potassium 4.5 mmol/L (3.5-5.1)
--- NOTE | 2018-09-06 07:30 | NUR ---
Opening Shift Note Assumed care of patient, awake, alert, and oriented x4. No S/S of distress/SOB or pain. IV is in right hand 22 gauge and is asymptomatic, intact, patent, and infusing normal saline at 100 mL/hour. IV is in left hand 22 gauge and is asymptomatic, intact, patent, and saline locked. Bed is locked and in lowest position and call light is within reach. Instructed on POC and to call for assist PRN, and patient verbalized understanding. Will continue to monitor for changes Q1hr and PRN.
[2018-09-06 09:39] VITALS: BP 155/86
[2018-09-06] MEDS: PANTOPRAZOLE 40 MG TAB PO SCH (10:00)
[2018-09-06] MEDS: ASPirin-EC 81 mg tab PO SCH (10:38)
[2018-09-06] MEDS: AMIODARONE HCL 200 MG TAB PO SCH (10:39)
[2018-09-06] MEDS: DOCUSATE SOD 100 MG CAP PO SCH (10:39)
[2018-09-06] MEDS: LISINOPRIL 5 MG TAB PO SCH (10:39)
[2018-09-06] MEDS: METOPROLOL TARTRATE 50 MG TAB PO SCH (10:41)
--- NOTE | 2018-09-06 11:16 | NUR ---
Dr. Luis M MD, at bedside; new orders received.
--- NOTE | 2018-09-06 11:17 | NUR ---
Called Dr. Shahbaz MD, per Dr. Luis M MD, to verify if he wants patient to resume amiodarone at home after discharge. Waiting on hold to speak with
[2018-09-06 12:18] VITALS: BP 155/86
[2018-09-06 13:00] VITALS: BP 162/79
--- NOTE | 2018-09-06 14:29 | NUR ---
Discharge instructions given as ordered. Encourage to follow up with PMD as instructed. All questions and concerns addressed. Patient verbalized understanding. Medication reconciliation form completed and copy given to patient. IV removed with catheter intact, pressure dressing applied. Telemetry unit returned to [facility]. Patient walked to vehicle with all personal belongings, accompanied by staff and family member. No distress noted at time of departure.
== END 2018-09-06 13:45 | disposition home or self-care (01) | DRG 174 ==
LOC: ER 11:43 → OVERFLOW 11:44 → TELE-EAST 18:01
PROVIDERS: ADMIT Nurse Practitioner Acute Care; ATTEND Internal Medicine
PROC: B2111ZZ Fluoroscopy of Multiple Coronary Arteries using Low Osmolar Contrast (ICD-10-PCS; principal; 2018-08-31)
PROC: 02583ZZ Destruction of Conduction Mechanism, Percutaneous Approach (ICD-10-PCS; 2018-09-05)
PROC: 4A023FZ Measurement of Cardiac Rhythm, Percutaneous Approach (ICD-10-PCS; 2018-09-05)
PROC: 02K83ZZ Map Conduction Mechanism, Percutaneous Approach (ICD-10-PCS; 2018-09-05)
DX: I21.4 Non-ST elevation (NSTEMI) myocardial infarction (principal); I95.9 Hypotension, unspecified; E11.22 Type 2 diabetes mellitus with diabetic chronic kidney disease; E44.0 Moderate protein-calorie malnutrition; I13.10 Hypertensive heart and chronic kidney disease without heart failure, with stage 1 through stage 4 chronic kidney disease, or unspecified chronic kidney disease; E83.42 Hypomagnesemia; E11.65 Type 2 diabetes mellitus with hyperglycemia; I47.1 Supraventricular tachycardia; N18.3 Chronic kidney disease, stage 3 (moderate); D50.9 Iron deficiency anemia, unspecified; E66.9 Obesity, unspecified; F41.9 Anxiety disorder, unspecified; K21.9 Gastro-esophageal reflux disease without esophagitis; Z68.37 Body mass index [BMI] 37.0-37.9, adult; Z79.84 Long term (current) use of oral hypoglycemic drugs; Z79.899 Other long term (current) drug therapy; Z82.0 Family history of epilepsy and other diseases of the nervous system
CPT/HCPCS: 36415; 71045; 80048; 80053; 82962; 83036; 83690; 83735; 83880; 84443; 84484; 84702; 85007; 85025; 85027; 85610; 85730; 86141; 93005; 93306; 93454; 93613; 93653; 94761; 96365; 96366; 96368; 96375; G0378; J0153; J2250; J2405; J7060; Q9967